=== PATIENT | male | born 1995 | race Caucasian/White ===

== ENCOUNTER 2024-09-07 06:10 | Emergency (ER) | payer MEDICAID ==
[~2024-09-07] VITALS: Ht 157.5 cm; Wt 64.0 kg
[2024-09-07 06:15] VITALS: O2SAT 98
[2024-09-07] MEDS: MAGNESIUM/ALUMINUM HYDROXIDE/SIMETHICONE 30ML UDC PO ONE (06:47)
[2024-09-07] MEDS: ONDANSETRON 4MG ODT PO ONE (06:47)
[2024-09-07] MEDS: FAMOTIDINE 20MG TABLET PO ONE (06:47)
[2024-09-07 07:23] LABS: CLARITY URINE TURBID (CLEAR); COLOR URINE YELLOW (YELLOW); GLUCOSE URINE NEGATIVE (NEGATIVE); KETONES URINE NEGATIVE (NEGATIVE); LEUKOCYTE ESTERASE URINE 2+ (NEGATIVE); NITRITE URINE NEGATIVE (NEGATIVE); OCCULT BLOOD URINE NEGATIVE (NEGATIVE); PH URINE 7.5 (4.5-8.0); PROTEIN URINE NEGATIVE (NEGATIVE); SPECIFIC GRAVITY URINE 1.017 (1.005-1.030); UROBILINOGEN URINE 1.0 E.U./dL (0.2-1.0)
[2024-09-07 07:29] LABS: CREATININE 0.8 mg/dL (0.6-1.3)
[2024-09-07 07:30] LABS: UREA NITROGEN BLOOD 9 mg/dL (9-23)
[2024-09-07 07:31] LABS: ASPARTATE AMINOTRANSFERASE 30 IU/L (<34); BILIRUBIN DIRECT 0.1 mg/dL (<=3.0)
[2024-09-07 07:32] LABS: BILIRUBIN TOTAL 0.4 mg/dL (0.1-1.0); PROTEIN TOTAL 8.2 g/dL (6.0-8.3)
[2024-09-07 07:42] LABS: BASOPHILS % 0.6 % (0.0-2.0); EOSINOPHILS % 4.1 % (0.0-5.0); HEMATOCRIT. 43.0 % (42.0-52.0); HEMOGLOBIN. 14.6 g/dL (14.0-18.0); LYMPHOCYTES % 30.7 % (20.0-50.0); MEAN PLATELET VOLUME 9.1 fl (7.4-10.4); MONOCYTES % 9.4 % (2.0-8.0); NEUTROPHILS % 55.2 % (40.0-76.0); PLATELET 303 x1000/uL (130-400); RED BLOOD CELL COUNT 5.09 mill/uL (4.7-6.1); RED CELL DISTRIBUTION WIDTH 14.9 % (11.6-14.6)
[2024-09-07 08:02] LABS: SQUAMOUS EPITHELIAL CELL URINE 1+ /lpf (RARE/1+)
[2024-09-07 08:03] LABS: AMORPHOUS SEDIMENT URINE 3+ /lpf; BACTERIA URINE 1+; RBC URINE NONE SEEN /hpf (0-2)
[2024-09-07 08:28] VITALS: BP 155/89; PULSE 79; RESP 18; TEMP 36.9; O2SAT 98
== END 2024-09-07 08:29 | disposition home or self-care (01) ==
LOC: ER 06:31
DX: R10.12 Left upper quadrant pain (principal); F32.A Depression, unspecified; Z88.8 Allergy status to other drugs, medicaments and biological substances; Z88.0 Allergy status to penicillin
CPT/HCPCS: 99284; 80076; 80048; 81003; 83690; 85025; 36415; Q0162

== ENCOUNTER 2024-11-04 21:25 | Emergency (ER) | payer MEDICAID ==
[~2024-11-04] VITALS: Ht 154.9 cm; Wt 68.0 kg
[2024-11-04 21:53] VITALS: O2SAT 100
[2024-11-04] MEDS: ACETAMINOPHEN 500MG TABLET PO ONE (23:10)
[2024-11-05 00:35] VITALS: BP 114/78; PULSE 74; RESP 18; TEMP 36.7; O2SAT 99
== END 2024-11-05 00:40 | disposition home or self-care (01) ==
LOC: ER 21:25
DX: R41.0 Disorientation, unspecified (principal); F32.A Depression, unspecified; Z79.899 Other long term (current) drug therapy; G40.909 Epilepsy, unspecified, not intractable, without status epilepticus; J45.909 Unspecified asthma, uncomplicated; Z88.0 Allergy status to penicillin; Z98.1 Arthrodesis status; Z88.8 Allergy status to other drugs, medicaments and biological substances
CPT/HCPCS: 99284